=== PATIENT | female | born 1985 | race Caucasian/White ===

== ENCOUNTER 2021-02-15 13:14 | Emergency (ER) | payer OTHER ==
[~2021-02-15] VITALS: Ht 162.6 cm; Wt 84.5 kg
[~2021-02-15 13:14] MED LIST: IBUP80TA PO; LEVO75TA4 PO; LEXA1TAB PO; MAPA500T17 PO; MOTR200T44 PO; NARCO PO; PRENTAB74 PO; SYNT75TA PO; SYNT88TA2 PO; TYLE325T5 PO; ZYRT1TAB PO
[2021-02-15 13:15] VITALS: BP 134/94
[2021-02-15] MEDS ORDERED: LEVO88TA3 (13:24)
== END 2021-02-16 00:07 | disposition left against medical advice (07) ==
LOC: M ED 13:14
DX: Z53.21 Procedure and treatment not carried out due to patient leaving prior to being seen by health care provider (principal)

== ENCOUNTER → 2021-03-20 | Outpatient (REF) | payer OTHER ==
[~2021-03-20] MED LIST changes: +LEVO88TA3
== END ==
LOC: M SFHCWAGY 17:17
PROVIDERS: ATTEND Obstetrics & Gynecology
DX: Z12.4 Encounter for screening for malignant neoplasm of cervix (principal)
CPT/HCPCS: 87624; G0123; G0463

== ENCOUNTER → 2021-04-02 | Outpatient (CLI) | payer OTHER ==
[2021-04-02 10:43] LABS: BASO % 0.5 % (0.0-1.0); EOS % 0.5 % (0.0-3.0); HEMATOCRIT 40.6 % (36.0-47.0); HEMOGLOBIN 13.4 g/dl (12.0-15.5); LYMPH % 32.7 % (24.0-44.0); MEAN CORPUSCULAR HEMOGLOBIN 30.7 pg (27.0-33.0); MEAN CORPUSCULAR VOLUME 92.9 fl (80.0-96.0); MONO # 0.6 10^3/uL (0.0-0.8); MONO % 9.7 % (2.0-8.0); NEUTROPHILS # 3.5 10^3/uL (1.5-8.5); NEUTROPHILS % 56.3 % (36.0-66.0); PLATELET COUNT, AUTOMATED 194 10^3/uL (150-450); RED BLOOD COUNT 4.37 10^6/uL (4.00-5.40); WHITE BLOOD COUNT 6.2 10^3/uL (4.0-10.0)
[2021-04-02 11:11] LABS: ALBUMIN 3.7 GM/DL (3.2-5.2); ALT/SGPT 25 U/L (12-78); BILIRUBIN,TOTAL 0.4 MG/DL (0.2-1.0); BLOOD UREA NITROGEN 9 MG/DL (7-18); CALCIUM LEVEL 8.7 MG/DL (8.5-10.1); CARBON DIOXIDE LEVEL 27 MEQ/L (21-32); CHLORIDE LEVEL 108 MEQ/L (98-107); CREATININE FOR GFR 0.74 MG/DL (0.55-1.30); FREE T4 1.22 NG/DL (0.76-1.46); GLOMERULAR FILTRATION RATE > 60.0 (>60); GLUCOSE, FASTING 82 MG/DL (70-100); POTASSIUM SERUM 4.1 MEQ/L (3.5-5.1); SODIUM LEVEL 140 MEQ/L (136-145)
[2021-04-02 11:12] LABS: THYROID PEROXIDASE ANTIBODY < 28.0 U/ML (<60.0); TOTAL 25(OH) VITAMIN D 34.4 NG/ML (30.0-100.0)
[2021-04-03 14:09] LABS: THRYOGLOBULIN ANTIBODIES (ATA) < 1.0 IU/mL (0.0-0.9); THYROGLOBULIN QUANTITATIVE 6.3 ng/mL (1.5-38.5)
== END ==
LOC: M LAB 09:46
PROVIDERS: ATTEND Physician Assistant
DX: E03.9 Hypothyroidism, unspecified (principal)

== ENCOUNTER → 2021-05-10 | Outpatient (CLI) | payer OTHER ==
[~2021-05-10] MED LIST changes: +CETI-36 PO; +ERGO500029 PO; -LEVO88TA3; +LEVO88TA3 PO; +MULT-40 PO; +VALA500T5 PO
== END ==
LOC: M LABSMTC 11:16
PROVIDERS: ATTEND Anesthesiology
DX: Z01.812 Encounter for preprocedural laboratory examination (principal); Z20.822 Contact with and (suspected) exposure to COVID-19

== ENCOUNTER 2021-05-15 09:49 | Day surgery (SDC) | payer OTHER ==
[~2021-05-15] VITALS: Ht 162.6 cm; Wt 84.8 kg
[~2021-05-15 09:49] MED LIST changes: +LR 1,000 ML IV ONE
[2021-05-15] MEDS ORDERED: dexameTHASONE 4 MG/ML 1ML VIAL (J1100 PER 1MG) As Ordered ONE (10:45)
[2021-05-15] MEDS ORDERED: KETOROLAC 60MG 2ML VIAL As Ordered ONE (10:45)
[2021-05-15] MEDS ORDERED: LIDOCAINE 2% 100MG/5ML SDV (FOR ANES.) As Ordered ONE (10:45)
[2021-05-15] MEDS ORDERED: propofoL 200 MG/20 ML VIAL As Ordered ONE (10:45)
[2021-05-15] MEDS ORDERED: ONDANSETRON 4MG/2ML VIAL As Ordered ONE ×2 (10:45→13:49)
[2021-05-15] MEDS ORDERED: MIDAZOLAM INJ 2MG/2ML VIAL (J2250 PER 1MG) As Ordered ONE (10:45)
[2021-05-15] MEDS ORDERED: fentaNYL 100 MCG/2 ML INJECTION (J3010) As Ordered ONE ×3 (10:46→19:19)
[2021-05-15 11:08] LABS: HEMATOCRIT 40.5 % (36.0-47.0); HEMOGLOBIN 13.6 g/dl (12.0-15.5); MEAN CORPUSCULAR HEMOGLOBIN 31.1 pg (27.0-33.0); MEAN CORPUSCULAR HGB CONC 33.6 g/dl (32.0-36.5); MEAN CORPUSCULAR VOLUME 92.7 fl (80.0-96.0); PLATELET COUNT, AUTOMATED 213 10^3/uL (150-450); RED BLOOD COUNT 4.37 10^6/uL (4.00-5.40); WHITE BLOOD COUNT 7.7 10^3/uL (4.0-10.0)
[2021-05-15 11:39] LABS: HCG, SERUM QUALITATIVE NEGATIVE (NEGATIVE)
[2021-05-15] MEDS ORDERED: BUPIVACAINE HCL 0.25% 10ML VIAL As Ordered ONE (11:52)
[2021-05-15] MEDS ORDERED: SILVER NITRATE APPLICATOR As Ordered ONE (11:52)
[2021-05-15] MEDS ORDERED: ROCURONIUM BROMIDE 50 MG/5 ML VIAL As Ordered ONE (11:54)
[2021-05-15] MEDS ORDERED: SCOPOLAMINE 1MG TRANSDERMAL PATCH TOP ONE (12:00)
[2021-05-15] MEDS ORDERED: SCOPOLAMINE 1MG TRANSDERMAL PATCH As Ordered ONE (12:11)
[2021-05-15] MEDS ORDERED: SUGAMMADEX SODIUM 500 MG/5 ML VIAL (BRIDION) As Ordered ONE (13:26)
[2021-05-15] MEDS: fentaNYL 100 MCG/2 ML INJECTION (J3010) IV PRN ×4 (13:50→14:05)
[2021-05-15] MEDS ORDERED: ONDANSETRON 4MG/2ML VIAL IV PRN (14:00)
[2021-05-15] MEDS ORDERED: oxyCODONE 5MG TAB PO PRN (14:00)
[2021-05-15] MEDS ORDERED: LR 1,000 ML IV SCH ×2 (14:00→15:20)
[2021-05-15] MEDS ORDERED: METOCLOPRAMIDE INJ 10MG/2ML VIAL (J2765 PER 1) IV PRN (14:00)
--- NOTE | 2021-05-15 14:13 | ROOPDOC ---
[facility] Report Of Operation Report of Operation DATE OF PROCEDURE: 05/15/21 PREPROCEDURE DIAGNOSES: Chronic pelvic pain POSTPROCEDURE DIAGNOSES: Endometriosis, fundal uterine leiomyoma, left paratubal cyst. PROCEDURE PERFORMED: Operative laparoscopy, fulguration of endometriosis, left paratubal cystectomy. SURGEON: Roberot Mtz DO FACOG ANESTHESIA: General ETA. ESTIMATED BLOOD LOSS: Approximately 10 mL. COMPLICATIONS: none. REMARKS: Diagnosis of endometriosis confirmed. Commissioning Engineer images of the endometriotic implants were taken before and after fulguration. FINDINGS: Endometriotic implants along the left uterosacral ligament, cortex of the right ovary, and a left paratubal cyst. Uterine contour was irregular with a fundal subserosal leiomyoma SPECIMENS REMOVED: Left paratubal cyst PROCEDURE NOTE: The patient was taken to the operating room with an IV running. She was placed on the operating table in the dorsal supine position. General anesthesia was administered and the airway was secured. The patient was prepared and draped in the normal sterile fashion. She was placed in the low lithotomy position. A timeout was performed per protocol. Attention was first turned to the pelvis. Colón catheter was placed under sterile conditions. A sterile speculum was placed with good visualization of the cervix. Single-tooth tenaculum was used to grasp the anterior lip of the cervix and downward traction was applied. The cervix was then sequentially dilated with Dax dilators. A ZUMI uterine manipulator was placed without any difficulty. The single-tooth tenaculum was removed. Sterile speculum was removed. Glove switch was performed. Attention was turned to the abdomen. A 5 mm umbilical incision was made with 11 blade. Through this incision, a Veress needle was inserted into the intraperitoneal cavity. Intraperitoneal placement was confirmed. The abdomen was insufflated with 2 L of gas. The Veress needle was removed. 5 mm laparoscopic cannula was placed under direct visualization without any difficulty. The patient was placed in steep Trendelenburg. An additional laparoscopic port site was placed in the left lower abdomen through a 5 mm incision under direct visualization. The anatomy of the abdomen pelvis was inspected with findings noted above. A LigaSure L-hook monopolar device was used to fulgurate the left uterosacral ligament implants. Vital structures were noted to be well away from this area fulguration. The right sided ovarian cortex endometriotic implant was fulgurated with the same device. The LigaSure 5 mm bipolar device was used to excise the left paratubal cyst without any difficulty. This specimen was removed through the cannula without any difficulty and sent to pathology for permanent section. The pelvis was irrigated and the fluid was suctioned. Excellent hemostasis was noted. The patient was taken out of Trendelenburg. The gas was released from the abdomen. The cannulas were removed. The incisions were closed with 4-0 Monocryl in subcuticular fashion and reinforced with Dermabond. Attention was turned back to the vagina. A sterile speculum was placed. The uterine manipulator was removed without any difficulty. Incidental minor laceration of the anterior lip of the cervix from the single-tooth tenaculum was noted. 3 interrupted sutures using 2-0 Vicryl were placed to achieve hemostasis and restore normal anatomy. All instruments were removed from the vagina. The Colón catheter was removed. Sponge needle and instrument counts were correct per protocol. The patient was taken to the PACU in good and stable condition. She had tolerated the entire procedure very well. DO GATO Galvan JONATHAN R. DO May 15, 2021 14:13
[2021-05-15] MEDS: HYDROMORPHONE HCL 0.5 MG/ 0.5 ML SYRINGE (J1170 PER 1) IV PRN ×4 (14:15→14:32)
[2021-05-15] MEDS ORDERED: OXYC1TAB23 PO (14:19)
[2021-05-15] MEDS ORDERED: IBUP80TA PO (14:46)
[2021-05-15] MEDS ORDERED: COLA100C5 PO (14:46)
[2021-05-15 16:30] VITALS: BP 114/60
== END 2021-05-15 16:45 | disposition home or self-care (01) ==
LOC: M SDC 09:49
PROVIDERS: ATTEND Obstetrics & Gynecology
DX: R10.2 Pelvic and perineal pain (principal); N83.8 Other noninflammatory disorders of ovary, fallopian tube and broad ligament; N80.9 Endometriosis, unspecified; E03.9 Hypothyroidism, unspecified; Z88.0 Allergy status to penicillin; Z87.891 Personal history of nicotine dependence; F41.9 Anxiety disorder, unspecified; F32.9 Major depressive disorder, single episode, unspecified
CPT/HCPCS: 36415; 58660; 58662; 84703; 85027; 86850; 86900; 86901; 88305; J1100; J1170; J1885; J2250; J2405; J2765; J3010

== ENCOUNTER → 2021-10-15 | Outpatient (CLI) | payer OTHER ==
[~2021-10-15] MED LIST changes: +COLA100C5 PO; -LR 1,000 ML IV ONE; +OXYC1TAB23 PO
[2021-10-15 13:18] LABS: BASO % 0.5 % (0.0-1.0); EOS # 0.1 10^3/uL (0.0-0.5); HEMATOCRIT 40.6 % (36.0-47.0); HEMOGLOBIN 13.8 g/dl (12.0-15.5); LYMPH # 2.5 10^3/uL (1.5-5.0); LYMPH % 32.4 % (24.0-44.0); MEAN CORPUSCULAR HEMOGLOBIN 31.6 pg (27.0-33.0); MEAN CORPUSCULAR VOLUME 92.9 fl (80.0-96.0); MONO # 0.7 10^3/uL (0.0-0.8); MONO % 9.4 % (2.0-8.0); NEUTROPHILS # 4.3 10^3/uL (1.5-8.5); NEUTROPHILS % 56.4 % (36.0-66.0); PLATELET COUNT, AUTOMATED 212 10^3/uL (150-450); RED BLOOD COUNT 4.37 10^6/uL (4.00-5.40); WHITE BLOOD COUNT 7.7 10^3/uL (4.0-10.0)
[2021-10-15 14:03] LABS: ALBUMIN 4.1 GM/DL (3.2-5.2); ALT/SGPT 39 U/L (12-78); BILIRUBIN,TOTAL 0.4 MG/DL (0.2-1.0); BLOOD UREA NITROGEN 10 MG/DL (7-18); CALCIUM LEVEL 9.7 MG/DL (8.5-10.1); CARBON DIOXIDE LEVEL 29 MEQ/L (21-32); CHLORIDE LEVEL 109 MEQ/L (98-107); CREATININE FOR GFR 0.76 MG/DL (0.55-1.30); FREE T4 1.29 NG/DL (0.76-1.46); GLOMERULAR FILTRATION RATE > 60.0 (>60); GLUCOSE, FASTING 82 MG/DL (70-100); POTASSIUM SERUM 4.9 MEQ/L (3.5-5.1); SODIUM LEVEL 141 MEQ/L (136-145); TOTAL PROTEIN 7.2 GM/DL (6.4-8.2)
[2021-10-15 14:06] LABS: TOTAL 25(OH) VITAMIN D 35.4 NG/ML (30.0-100.0)
== END ==
LOC: M PLALAB 09:10
PROVIDERS: ATTEND Physician Assistant
DX: E03.9 Hypothyroidism, unspecified (principal)

== ENCOUNTER → 2022-05-09 | Outpatient (REF) | payer OTHER ==
[2022-05-09 13:45] LABS: BASO % 0.5 % (0.0-1.0); EOS # 0.1 10^3/uL (0.0-0.5); EOS % 1.4 % (0.0-3.0); HEMATOCRIT 40.7 % (36.0-47.0); HEMOGLOBIN 13.5 g/dl (12.0-15.5); LYMPH # 2.3 10^3/uL (1.5-5.0); LYMPH % 28.8 % (24.0-44.0); MEAN CORPUSCULAR HGB CONC 33.2 g/dl (32.0-36.5); MEAN CORPUSCULAR VOLUME 93.3 fl (80.0-96.0); MONO # 0.6 10^3/uL (0.0-0.8); MONO % 7.9 % (2.0-8.0); NEUTROPHILS # 4.9 10^3/uL (1.5-8.5); NEUTROPHILS % 61.2 % (36.0-66.0); PLATELET COUNT, AUTOMATED 209 10^3/uL (150-450); RED BLOOD COUNT 4.36 10^6/uL (4.00-5.40); WHITE BLOOD COUNT 8.1 10^3/uL (4.0-10.0)
[2022-05-09 14:53] LABS: GLUCOSE, FASTING 80 MG/DL (70-100)
[2022-05-09 14:54] LABS: ALBUMIN 3.9 GM/DL (3.2-5.2); ALT/SGPT 27 U/L (12-78); BILIRUBIN,TOTAL 0.6 MG/DL (0.2-1.0); BLOOD UREA NITROGEN 11 MG/DL (7-18); CARBON DIOXIDE LEVEL 28 MEQ/L (21-32); CHLORIDE LEVEL 107 MEQ/L (98-107); CREATININE FOR GFR 0.78 MG/DL (0.55-1.30); GLOMERULAR FILTRATION RATE > 60.0 (>60); POTASSIUM SERUM 4.1 MEQ/L (3.5-5.1); SODIUM LEVEL 140 MEQ/L (136-145); TOTAL PROTEIN 7.3 GM/DL (6.4-8.2)
[2022-05-09 15:19] LABS: TOTAL 25(OH) VITAMIN D 42.3 NG/ML (30.0-100.0)
== END ==
LOC: M PLALAB 12:44
PROVIDERS: ATTEND Nurse Practitioner Adult Health
DX: E03.9 Hypothyroidism, unspecified (principal); E55.9 Vitamin D deficiency, unspecified

== ENCOUNTER → 2022-09-02 | Outpatient (CLI) | payer OTHER ==
[2022-09-02 16:49] LABS: BASO # 0.1 10^3/uL (0.0-0.2); BASO % 0.6 % (0.0-1.0); EOS # 0.1 10^3/uL (0.0-0.5); EOS % 0.7 % (0.0-3.0); HEMATOCRIT 40.9 % (36.0-47.0); HEMOGLOBIN 13.5 g/dl (12.0-15.5); LYMPH # 2.5 10^3/uL (1.5-5.0); LYMPH % 31.5 % (24.0-44.0); MEAN CORPUSCULAR HEMOGLOBIN 30.8 pg (27.0-33.0); MEAN CORPUSCULAR VOLUME 93.4 fl (80.0-96.0); MONO # 0.5 10^3/uL (0.0-0.8); MONO % 6.6 % (2.0-8.0); NEUTROPHILS # 4.8 10^3/uL (1.5-8.5); NEUTROPHILS % 60.5 % (36.0-66.0); PLATELET COUNT, AUTOMATED 252 10^3/uL (150-450); RED BLOOD COUNT 4.38 10^6/uL (4.00-5.40)
[2022-09-02 17:14] LABS: RHEUMATOID FACTOR QUANT < 3.5 IU/ML (<14)
[2022-09-02 17:15] LABS: ALKALINE PHOSPHATASE 91 U/L (46-116); ALT/SGPT 28 U/L (7.0-40); AST/SGOT 28 U/L (<34); BILIRUBIN,TOTAL 0.4 MG/DL (0.3-1.2); BLOOD UREA NITROGEN 11 MG/DL (9-23); CARBON DIOXIDE LEVEL 30 MMOL/L (20-31); CHLORIDE LEVEL 102 MMOL/L (98-107); CREATININE FOR GFR 0.68 MG/DL (0.55-1.30); GLOMERULAR FILTRATION RATE > 60.0 (>60); GLUCOSE, FASTING 71 MG/DL (60-100); POTASSIUM SERUM 4.4 MMOL/L (3.5-5.1); SODIUM LEVEL 139 MMOL/L (136-145); THYROID PEROXIDASE ANTIBODY 33 U/ML (<60.0); TOTAL PROTEIN 7.4 G/DL (5.7-8.2)
[2022-09-02 18:09] LABS: ERYTHROCYTE SEDIMENTATION RATE 14 mm/hr (0-20)
== END ==
LOC: M PLALAB 12:11
PROVIDERS: ATTEND Allergy & Immunology Allergy
DX: L50.1 Idiopathic urticaria (principal)

== ENCOUNTER → 2022-12-15 | Outpatient (CLI) | payer OTHER | LOC: M PLALAB 10:47 | PROVIDERS: ATTEND Allergy & Immunology Allergy | DX: J31.0 Chronic rhinitis (principal) ==

== ENCOUNTER → 2023-01-06 | Outpatient (CLI) | payer OTHER ==
[2023-01-06 15:13] LABS: BASO # 0.1 10^3/uL (0.0-0.2); BASO % 0.8 % (0.0-1.0); EOS # 0.1 10^3/uL (0.0-0.5); EOS % 1.1 % (0.0-3.0); HEMOGLOBIN 13.2 g/dl (12.0-15.5); LYMPH # 2.4 10^3/uL (1.5-5.0); LYMPH % 29.9 % (24.0-44.0); MEAN CORPUSCULAR HEMOGLOBIN 30.8 pg (27.0-33.0); MEAN CORPUSCULAR VOLUME 93.2 fl (80.0-96.0); MONO # 0.7 10^3/uL (0.0-0.8); MONO % 8.7 % (2.0-8.0); NEUTROPHILS # 4.7 10^3/uL (1.5-8.5); NEUTROPHILS % 59.2 % (36.0-66.0); PLATELET COUNT, AUTOMATED 231 10^3/uL (150-450); RED BLOOD COUNT 4.29 10^6/uL (4.00-5.40); WHITE BLOOD COUNT 7.9 10^3/uL (4.0-10.0)
[2023-01-06 15:48] LABS: FREE T4 1.29 NG/DL (0.89-1.76)
[2023-01-06 15:50] LABS: TOTAL 25(OH) VITAMIN D 31.3 NG/ML (20.0-100.0)
[2023-01-06 15:51] LABS: ALKALINE PHOSPHATASE 92 U/L (46-116); ALT/SGPT < 9 U/L (7.0-40); AST/SGOT 12 U/L (<34); BILIRUBIN,TOTAL 0.4 MG/DL (0.3-1.2); BLOOD UREA NITROGEN 11 MG/DL (9-23); CALCIUM LEVEL 8.6 MG/DL (8.5-10.1); CARBON DIOXIDE LEVEL 28 MMOL/L (20-31); CHLORIDE LEVEL 107 MMOL/L (98-107); CREATININE FOR GFR 0.75 MG/DL (0.55-1.30); GLOMERULAR FILTRATION RATE > 60.0 (>60); GLUCOSE, FASTING 84 MG/DL (60-100); POTASSIUM SERUM 4.7 MMOL/L (3.5-5.1); SODIUM LEVEL 138 MMOL/L (136-145); TOTAL PROTEIN 6.8 G/DL (5.7-8.2)
== END ==
LOC: M PLALAB 09:59
PROVIDERS: ATTEND Nurse Practitioner Adult Health
DX: E03.9 Hypothyroidism, unspecified (principal); E55.9 Vitamin D deficiency, unspecified; F41.1 Generalized anxiety disorder

== ENCOUNTER → 2023-05-21 | Outpatient (REF) | payer OTHER | LOC: M SFHCWAGY 17:33 | PROVIDERS: ATTEND Obstetrics & Gynecology | DX: Z12.4 Encounter for screening for malignant neoplasm of cervix (principal) | CPT/HCPCS: 87624; G0123; G0463 ==

== ENCOUNTER → 2023-08-28 | Outpatient (REF) | payer OTHER | LOC: M LAB REF 15:04 | PROVIDERS: ATTEND Family Medicine | DX: J02.9 Acute pharyngitis, unspecified (principal) ==

== ENCOUNTER → 2023-12-16 | Outpatient (CLI) | payer OTHER ==
[2023-12-16 11:06] LABS: FREE T4 1.41 NG/DL (0.89-1.76); THYROID STIMULATING HORMONE 1.503 uIU/ML (0.55-4.78)
== END ==
LOC: M PLALAB 07:11
PROVIDERS: ATTEND Nurse Practitioner Adult Health
DX: E03.9 Hypothyroidism, unspecified (principal)